=== PATIENT | female | born 1985 | race Asian ===

== ENCOUNTER 2020-07-03 03:45 | Inpatient (IN) | payer OTHER ==
[~2020-07-03] VITALS: Ht 157.5 cm; Wt 68.2 kg
[2020-07-03] VITALS (39 sets, daily range): BP systolic 104–143; BP diastolic 62–92; PULSE 68–134; TEMP 97.4–98.6
--- NOTE | 2020-07-03 03:50 | NUR ---
Pt arrived on unit escorted by and with complaints of contractions every "couple minutes". Pt denies any leaking of fluid or vaginal bleeding and reports normal movement. EFM and toco monitors started. Vital signs WNL. SVE /-3. Pt requesting to attempt .
[2020-07-03 04:25] LABS: BASO % 0.3 % (0.0-2.0); EOS # 0.1 (0.0-0.7); EOS % 1.1 % (0-4.0); GRAN # 3.8 (1.4-6.5); GRAN % 60.6 % (42.2-75.2); HEMATOCRIT 38.2 % (37.0-47.0); LYMPH # 1.8 (1.2-3.4); LYMPH % 28.3 % (20.0-51.0); MEAN CELL VOLUME 90 fl (80.0-100.0); MEAN CORPUSCULAR HEMOGLOBIN 31 pg (27.0-31.0); MEAN CORPUSCULAR HGB CONC 34 g/dl (33.0-37.0); MEAN PLATELET VOLUME 10.3 fl (7.4-10.4); MONO # 0.6 (0.1-0.6); MONO % 9.4 % (1.7-9.3); PLATELET COUNT 186 K/mm3 (130-400); RED BLOOD COUNT 4.25 M/mm3 (4.10-5.30); REDCELL DISTRIBUTION WIDTH-CV 12.9 % (11.5-14.5)
[2020-07-03] MEDS ORDERED: PRENATAL (05:42)
--- NOTE | 2020-07-03 08:20 | NUR ---
Patient calls RN to room and states she thinks her "water broke." Scant amount of clear fluid on pad. SVE by this RN /-2. Vertex well applied to cervix. BBOW palpated.
--- NOTE | 2020-07-03 09:43 | NUR ---
0943- SVE by this RN C/+1. Dr. Zhou notified. See physician notification. 0949- Murphy removed. Edna care provided. Patient begins to push with contrations with RN at bedside. Moves vertex well. 1032- Phone call to Dr. Zhou. No answer. 1035- Phone call from Dr. Zhou. See physician notification. Patient laboring down, and breathing through contracions with RN at bedside. 1054- Dr. Zhou to bedside for delivery. Patient repositioned in bed. Pushing with ctx with Dr. Zhou at bedside. Move vertex well. 1103- MLE by Dr. Zhou. of viable male at this time. To mother's chest where dried and stimulated by Sahil Bhagat RN who assumes care of at this time. After 2min cord clamped and cut by FOB. Large amount of red bleeding from vagina. 1108- Gage Sebastian, unit tech to bedside to assist provider with vaginal lac repair. Pulse ox applied. 1112- Spontaneous vaginal delivery of placenta. Pitocin at 333ml/hr per orders. Fundus firm, and midline per Dr. Zhou. Provider remains at bedside for vaginal lac repair. 1138- Straight cath by Dr. Zhou for 50ml of urine. Edna care provided and patient repositioned in bed. Pads changed and ice pack to perineum. Plan of care and safety precautions reviewed with patient and family who verbalize understanding. See doctor dictation, anesthesia record, and nurses notes.
--- NOTE | 2020-07-03 14:00 | NUR ---
Patient to edge of bed. Denies dizziness or lightheadedness. Ambulatory to BR with assist x1. Unable to void at this time. Edna care provided, pads changed, ice pack to perineum. To 215 via wheelchair. Oriented to room and plan of care. Patient instructed to drink fluids and attempt void in one hour. Verbalizes understanding. Denies quesions or needs at this time.
[2020-07-03 16:29] LABS: BASO % 0.2 % (0.0-2.0); GRAN # 14.6 (1.4-6.5); GRAN % 89.8 % (42.2-75.2); LYMPH # 0.7 (1.2-3.4); LYMPH % 4.4 % (20.0-51.0); MEAN CELL VOLUME 90 fl (80.0-100.0); MEAN CORPUSCULAR HGB CONC 34 g/dl (33.0-37.0); MEAN PLATELET VOLUME 10.6 fl (7.4-10.4); MONO # 0.8 (0.1-0.6); MONO % 5.2 % (1.7-9.3); PLATELET COUNT 156 K/mm3 (130-400); RED BLOOD COUNT 3.15 M/mm3 (4.10-5.30); REDCELL DISTRIBUTION WIDTH-CV 13.1 % (11.5-14.5)
[2020-07-03 16:31] LABS: HEMATOCRIT 28.2 % (37.0-47.0); MEAN CORPUSCULAR HEMOGLOBIN 30 pg (27.0-31.0)
[2020-07-03 16:35] LABS: HEMOGLOBIN 9.5 g/dl (12.5-16.0)
[2020-07-04 03:15] VITALS: BP 112/71; PULSE 79; TEMP 97.5
[2020-07-04 08:06] VITALS: BP 112/77; PULSE 87; TEMP 97.6
[2020-07-04] MEDS ORDERED: IBU600 MG PO (09:18)
[2020-07-04 16:29] VITALS: BP 117/82; PULSE 89; TEMP 97.7
[2020-07-04 20:00] VITALS: BP 139/88; PULSE 99; TEMP 98.3
[2020-07-05 07:45] VITALS: BP 127/76; PULSE 84; TEMP 97.1
== END 2020-07-05 12:55 | disposition home or self-care (01) | DRG 806 ==
LOC: LDRO 03:45 → LDR 04:12 → OB 04:12
PROVIDERS: Obstetrics & Gynecology; ADMIT Obstetrics & Gynecology
PROC: 10E0XZZ Delivery of Products of Conception, External Approach (ICD-10-PCS; principal; 2020-07-03)
PROC: 10907ZC Drainage of Amniotic Fluid, Therapeutic from Products of Conception, Via Natural or Artificial Opening (ICD-10-PCS; 2020-07-03)
PROC: 0UQGXZZ Repair Vagina, External Approach (ICD-10-PCS; 2020-07-03)
PROC: 0W8NXZZ Division of Female Perineum, External Approach (ICD-10-PCS; 2020-07-03)
DX: O48.0 Post-term pregnancy (principal); O71.4 Obstetric high vaginal laceration alone; Z37.0 Single live birth; O99.824 Streptococcus B carrier state complicating childbirth; O34.211 Maternal care for low transverse scar from previous cesarean delivery; Z3A.40 40 weeks gestation of pregnancy
CPT/HCPCS: J2540; J2590; J7120